=== PATIENT | male | born 1970 | race Caucasian/White ===

== ENCOUNTER 2016-07-08 14:34 | Emergency (ER) | payer OTHER ==
[~2016-07-08] VITALS: Wt 83.9 kg
[2016-07-08] MEDS ORDERED: NORCO 5-325 TA1 EACH PO (16:45)
== END 2016-07-08 16:57 | disposition home or self-care (01) ==
LOC: ED 14:34
DX: S42.002A Fracture of unspecified part of left clavicle, initial encounter for closed fracture (principal); V86.59XA Driver of other special all-terrain or other off-road motor vehicle injured in nontraffic accident, initial encounter; Y93.89 Activity, other specified; Y92.413 State road as the place of occurrence of the external cause; Y99.9 Unspecified external cause status